=== PATIENT | female | born 2000 | race Caucasian/White ===

== ENCOUNTER 2024-09-06 10:31 | Emergency (ER) | payer OTHER, SELFPAY ==
--- NOTE | ~2024-09-06 | XR_ITS ---
CLINICAL HISTORY: chest pain 2 view chest x-ray Comparison: None Findings: No consolidation or effusion. Heart size is normal. No acute fracture. IMPRESSION: No acute cardiopulmonary process. This document has been electronically signed by: Melissa Hillman DO on 09/06/2024 11:38:19
--- NOTE | 2024-09-06 10:34 | ECG_ITS ---
Test Reason : cp Blood Pressure : */* mmHG Vent. Rate : 76 BPM Atrial Rate : 76 BPM P-R Int : 124 ms QRS Dur : 96 ms QT Int : 374 ms P-R-T Axes : 52 61 44 degrees QTcB Int : 420 ms Normal sinus rhythm with sinus arrhythmia Normal ECG No previous ECGs available Referred By: Generic ED Physician Electronically Signed By: JANAY JOHNSON
[2024-09-06 10:43] VITALS: BP 116/80; PULSE 75; RESP 14; O2SAT 100; BMI 39.7
--- NOTE | 2024-09-06 10:54 | ED_ITS ---
HPI - Arrhythmia/Palpitations General Chief Complaint: Arrhythmia/Palpitations Stated Complaint: chest pain rapid heart beat hands numbness Time Seen by Provider: 09/06/24 10:53 Source: patient Mode of arrival: ambulatory Limitations: no limitations History of Present Illness ED Provider: RERE AUSTIN PA-C HPI narrative: 24 year old female with pmhx significant for asthma presents to the ED today for evaluation of palpitations x6 days. Admits it feels like her heart is racing. Symptoms have been constant, worse when she lies down for bed at night. Reports associated discomfort towards the left side of her chest without radiation. Admits to history of similar 1 year ago. She reports following up with cardiology at [facility] with unremarkable holter monitor. Since this time has cut out all caffeine. Denies any recent life stressors or anxiety provoking situations. Endorses [address] to [place] a few weeks ago. Currently on OCP. no recent medication changes. No personal or familial cardiac hx. Denies hx of sudden cardiac deaths in the family. Denies headache, dizziness, vision changes, SOB, LE pain/swelling, N/V. Related Data Previous Rx's ?Medication ?Instructions ?Recorded hydroxyzine HCl 25 mg tablet 25 mg PO BEDTIME 2 weeks #14 tabs 09/06/24 Allergies Allergy/AdvReac Type Severity Reaction Status Date / Time No Known Allergies Allergy Verified 09/06/24 10:45 Review of Systems 2 Review of Systems: Yes all other systems are reviewed and are negative [facility] Past Medical History Attestation statement: The following information was validated with the patient. Source: old records reviewed and nursing notes reviewed Physical Exam 2 Vital Signs: Vital Signs: Last Vital Signs Temp 98.5 F 09/06/24 13:42 Pulse 69 09/06/24 13:42 Resp 17 09/06/24 13:42 BP 119/75 09/06/24 13:42 Pulse Ox 98 09/06/24 13:42 O2 Del Method Room Air 09/06/24 13:42 BMI result Body Mass Index 39.7 vital signs stable, not tachycardic General: Well appearing, in no acute distress. Skin: Warm, dry, intact. No rashes or lesions. Head: Normocephalic, atraumatic. EENT: Hearing is intact b/l. Conjunctiva clear. Sclera is anicteric. PERRLA. Cardiac: Chest wall symmetric. RRR. No reproducible TTP Lungs: Normal respiratory effort without accessory muscle use. CTA bilaterally Abdomen: Soft, non-tender, non-distended. No rebound tenderness or guarding. Positive BS x4. Ext: Upper and lower extremities atraumatic, without tenderness, deformity, swelling or erythema Neuro: AOx3. Normal speech. Course Course Course Narrative: 1154 -- CBC with no leukocytosis or left shift. H&H stable. No electrolyte abnormalities, kidney function WNL, your enzymes WNL. TSH WNL. Beta hCG undetectable. D-dimer negative, PE unlikely. Chest x-ray shows no consolidation or effusion, normal heart size, no acute fracture. EKG shows normal sinus rhythm with sinus arrhythmia, 76 beats per minute. > pending viral swabs 1310 -- viral swabs negative. Patient's vitals have remained stable. She has not been tachycardic during visit today. she is well appearing. Given symptoms have been consistent, worsening when she lies down for bed at night, I have suspicion for some sort of anxiety component. I will send Atarax to her pharmacy for her to trial. Patient is agreeable with this. She was given a dose in the ED today. Advised PCP and cardiology follow up as she may warrant a repeat Holter monitor. Patient has remained stable throughout ED visit today. Discussed worrisome signs and symptoms and when to return to the ED. All questions answered at this time. Patient is agreeable with disposition and stable for discharge. Medications Administered Discontinued Medications Generic Name Dose Route Start Last Admin Trade Name Freq PRN Reason Stop Dose Admin Hydroxyzine HCl 25 mg 09/06/24 13:10 09/06/24 13:41 Hydroxyzine Hcl 25 Mg Tablet PO 09/06/24 13:11 25 mg ONCE ONE Administration Medical Decision Making Medical Decision Making [facility] Narrative: 24 year old female with pmhx significant for asthma presents to the ED today for evaluation of palpitations x6 days. ? Exam without evidence of volume overload. EKG without signs of active ischemia. HEART score: 0.? Given the timing of pain to ED presentation, plan to send single troponin to evaluate for NSTEMI. Differential diagnosis also includes anemia, electrolyte abnormality, costochondritis, msk pain, pneumonia, pleurisy, PE (PERC 2), anxiety, thyroid abnormality Presentation not consistent with pneumothorax, thoracic aortic dissection, cardiac effusion or tamponade, myocarditis, pericarditis Plan: labs, troponin, EKG, CXR, pain control, reassessment Differential Diagnosis Differential Diagnoses: The differential diagnosis associated with the presentation includes As above Admission/Observation Not indicated Lab Data MDM Lab Attestation statement: I reviewed the patient's lab results. As above 09/06/24 10:50 09/06/24 10:50 Labs: Lab Results 09/06/24 09/06/24 Range/Units 10:50 11:24 WBC 6.3 (4.8-10.8) X10*3/uL RBC 4.90 (4.20-5.50) X10*6/uL Hgb 14.1 (12.0-16.0) g/dl Hct 42.1 (37.0-47.0) % MCV 85.9 (80.0-98.0) fL MCH 28.8 (27.0-33.0) pg MCHC 33.5 (31.0-35.0) g/dl RDW 12.7 (11.0-16.0) % Plt Count 361 (160-400) X10*3/uL MPV 9.6 (9.4-12.3) fL Immature Gran % (Auto) 0.2 (0.0-0.4) % Neut % (Auto) 57.7 (45-73) % Lymph % (Auto) 35.3 (20-40) % Bullock % (Auto) 5.9 (2-11) % Eos % (Auto) 0.3 (0-4) % Baso % (Auto) 0.6 (0-2) % Lymph # (Auto) 2.2 (1.2-4.9) X10*3/uL Bullock # (Auto) 0.4 (0.1-1.2) X10*3/uL Eos # (Auto) 0.0 (0.0-0.4) X10*3/uL Baso # (Auto) 0.0 (0.0-0.2) X10*3/uL Abs Immat Gran (auto) 0.01 (0.00-0.03) X10*3/uL Absolute Neuts (auto) 3.6 (2.0-8.3) x10*3/uL Absolute Nucleated RBC 0.000 (0.0-0.012) X10*3/uL Nucleated RBC % (auto) 0.0 (0.0-0.2) /100WBC D-Dimer High Sensitivty < 150 NG/ML Sodium 141 (135-145) mmol/L Potassium 4.1 (3.3-5.1) mmol/L Chloride 107 (96-108) mmol/L Carbon Dioxide 26 (22-29) mmol/L Anion Gap 12 (12-20) BUN 9 (9-16) mg/dL Creatinine 0.62 (0.5-1.4) mg/dL Estim Creat Clear Calc 154.7 Estimated GFR > 60 Random Glucose 93 (60-115) mg/dL Calcium 9.2 (8.4-10.2) mg/dL Total Bilirubin 0.5 (0.0-1.0) mg/dL AST 19 (5-31) U/L ALT 12 (0-31) U/L Alkaline Phosphatase 48 (39-117) U/L Troponin I High Sens < 2.7 (<3.5-17.0) ng/L Total Protein 7.2 (6.5-8.0) g/dL Albumin 4.0 (3.5-5.0) g/dL TSH 1.70 (0.32-4.0) uIU/mL Beta HCG, Quant < 2 mIU/mL Influenza Type A (PCR) NEGATIVE (Negative) Influenza Type B (PCR) NEGATIVE (Negative) RSV RNA Qual (PCR) NEGATIVE (Negative) SARS-CoV-2 RNA (RT-PCR) NEGATIVE (Negative) Independent Interpretation I performed an independent interpretation of an: EKG and Plain X-Ray Interpretation: EKG showing normal sinus rhythm, 76 bpm, no ischemic changes or ST abnormalities. Chest x-ray showing no consolidations or effusions, normal heart size, and no acute fracture Radiology Impression Discussion of test interpretation with radiology: I have reviewed the radiologist's reading. Radiologist Impression: Date of Service: 09/06/24 Procedure(s): ECG 12 lead EKG Accession Number(s): [id number] cc: ~ Test Reason : cp Blood Pressure : */* mmHG Vent. Rate : 76 BPM Atrial Rate : 76 BPM P-R Int : 124 ms QRS Dur : 96 ms QT Int : 374 ms P-R-T Axes : 52 61 44 degrees QTcB Int : 420 ms Normal sinus rhythm with sinus arrhythmia Normal ECG No previous ECGs available Date of Service: 09/06/24 Procedure(s): XR chest 2V Accession Number(s): [id number] cc: Rere Austin; Jane De La Torre CNP~ CLINICAL HISTORY: chest pain 2 view chest x-ray Comparison: None Findings: No consolidation or effusion. Heart size is normal. No acute fracture. IMPRESSION: No acute cardiopulmonary process. This document has been electronically signed by: Melissa Hillman DO on 09/06/2024 11:38:19 Prescription Management I considered prescription management with: Other (Hydroxyzine) Social Determinants Patient?s care significantly limited by Social Determinants of Health including: Other Social Determinant of Health Critical Care Time Critical Care Time Critical Care Time: No Discharge Plan Discharge Clinical Impression: Heart palpitations Patient Disposition: Home, Self-Care Instructions: Heart Palpitations (ED) Additional Instructions: You were evaluated in the ED today for heart palpitations. Your workup is reassuring. Your blood work including cardiac enzyme is normal. You are not having a heart attack. I suspect this may be anxiety related. you are agreeable to trying atarax. Take 25 mg daily for 2 weeks. Please follow up with your primary care provider regarding subsequent refills. I also recommend following up with Cardiology as you may require Holter monitor. I have provided you with a referral. Call them to establish care. They will not call you. Please return with any new or worsening symptoms. In the case of an emergency call 911. Prescriptions: New hydroxyzine HCl 25 mg tablet 25 mg PO BEDTIME 14 Days Qty: 14 0RF Referrals: [facility] [Provider Group] Jane De La Torre CNP [Primary Care Provider] - Interventions: ED Discharge Assessment Last Done: 09/06/24 13:42 Discharge Date/Time: 09/06/24 13:47 Print Language: Mauritian
--- OUTSIDE RECORDS SUMMARY | 2024-09-06 10:55 | XMS_ITS | Clinical Summary ---
Author Organization [address] [facility] Address [address] [place] [address] Phone Care Team Providers Care Rn Assessment Name Role Phone Eric De Leon MD Primary Care Provider [phone] Allergies No known active allergies Medications silver sulfADIAZINE (Silvadene) 1 % cream Apply topically 1 (one) time each day. 50 g 06/04/19 26 Active Encounters Date Type Department Care Team Description 07/10/2024 8:30 AM EDT Office Visit [facility] [place] [address] [phone] Inder Stark DPM Ingrowing nail (Primary Dx) 06/18/2024 8:15 AM EST Office Visit [facility] [address] [phone] Inder Stark DPM Cellulitis of right foot (Primary Dx); Granulation tissue; Ingrowing nail 06/12/2024 8:30 AM EST Office Visit Orth[facility] [place] [address] [phone] Inder Stark DPM Cellulitis of right foot (Primary Dx); Granulation tissue from Last 3 Months Social History Tobacco Use Types Packs/Day Years Used Date Smoking Tobacco: Never Assessed Comments Unknown Sex and Gender Information Value Date Recorded Sex Assigned at Not on file Legal Sex Female 7:10 PM EST Gender Identity Not on file Sexual Orientation Not on file Last Filed Vital Signs Vital Sign Reading Time Taken Comments Blood Pressure - - Pulse - - Temperature - - Respiratory Rate - - Oxygen Saturation - - Inhaled Oxygen Concentration - - Weight 81.6 kg (180 lb) 07/10/2024 8:25 AM EDT Height 157.5 cm (5' 2.01 ) 07/10/2024 8:25 AM ED T Body Mass Index 32.91 07/10/2024 8:25 AM EDT Plan of Treatment Health Maintenance Due Date Last Done Comments Gonorrhea/Chlamydia Screening 2001 Meningococcal B Vaccine (1 of 2 - Standard) 2017 Depression Screening 04/01/2022 HIV Screening 04/01/2022 Hepatitis C Screening 04/01/2022 Social Influencers of Health Screening 04/01/2022 Cervical Cancer Screening: Pap Smear 2022 DTaP,Tdap,and Td Vaccines (7 - Td or Tdap) 10/11/2022 10/11/2012, 07/24/2006, 11/27/2002, Additional history exists COVID-19 Vaccine ( season) 2023 09/05/2020, 08/15/2020 Influenza Vaccine (Season Ended) 2024 12/28/2015 Hepatitis B Vaccines Completed 01/30/2002, 2001, 2001 HIB Vaccines Completed 08/04/2002, 10/29, 2001, Additional history exists MMR Vaccines Completed 08/04/2002, 05/07/2002 Pneumococcal Vaccine: Pediatrics (0 to 5 Years) and At-Risk Patients (6 to 64 Years) Completed 11/27/2002, 2001, 2001 IPV Vaccines Completed 07/24/2006, 10/30, 2001, Additional history exists Varicella Vaccines Completed 08/21/2006, 05/07/2002 HPV Vaccines Completed 12/28/2015, 11/28, 10/11/2012 Meningococcal ACWY Vaccine Completed 11/07/2017, Hepatitis A Vaccines Completed 05/20/2018, 11/08/19 18 RSV Immunization Patients Under 20 months Aged Out No longer eligible based on patient's age to complete this [place] [id number] Care Teams Rn Assessment Relationship Specialty Start Date End Date Eric De Leon MD [address] [place] [address] PCP - General Internal Medicine 06/03/24
--- OUTSIDE RECORDS SUMMARY | 2024-09-06 10:55 | XMS_ITS ---
Author Organization [facility] Address [address] [place] [address] Care Team Providers Care Track Leader Name Role Phone KRYS SINGER, JAKE Primary Care Provider Unav ailable MECCA [address]OX [phone] Encounters Encounter Location Date Provider Diagnosis [facility] [address] [place] [address] 07/21/2024 MECCA [address] Plan Of Treatment Next Appt Details Provider Name:MECCA Diaz, 06/09/2025 08:20:00 AM, [address], [address], [place], [address], Progress Notes * JULIA KANDYEDOB:06/2000 (24 yo F)Acc No.[id number]:07/21/2024 Patient:?DUMONTJEANSABARyan EE :2000???Age:24 Y???Sex:Female Address:[address] [place] [address], [id number] Subjective: * Chief Complaints: * ??? * Medical History:? * Surgical History:? * Hospitalization/Major Diagno stic Procedure:? * Medications:? Objective: * Vitals:? * Physical Examination:? Assessment: Plan: * Treatment: * Procedure Codes:? * true * Date:? Generated for Printi ng/Faxing/eTransmitting on:?09/06/2024 10:55 AM EDT
--- OUTSIDE RECORDS SUMMARY | 2024-09-06 10:55 | XMS_ITS ---
Author Organization [facility] Address [address] [place] [address] Care Team Providers Care Inside Sales Director Name Role Phone KRYS SINGER, LUNA Primary Care Provider Unav ailable MECCA BOX Unavailable [phone] Allergies No Known Allergies Results Component Value Reference Range Notes Urinalysis Reviewed date:07/17/2024 01:16:04 PM Interpretation: Performing Lab: Notes/Report: NITRITE neg PH 6.0 PROTEIN trace S.G 1.010 WBC LG GLUCOSE neg KETONES neg UROBILINOGEN neg BILIRUBIN neg BLOOD Small Urine Culture, Routine-[id number] Reviewed date:07/21/2024 08:44:38 AM Interpretation: Performing Lab:[facility], [address], [address], [place], Phone - [phone], Director - [facility] Notes/Report: Clinical Information:SRC: YAN GRANGER SRC: URINE Clinical Information:SRC: YAN GRANGER SRC: URINE Urine Culture, Routine Final report Result 1 Escherichia coli Susceptibility profile is consistent with a probable ESBL. Multi-Drug Resistant Organism Greater than 100,000 colony forming units per mL Antimicrobial Susceptibility S = Susceptible; I = Intermediate; R = Resistant P = Positive; N = Negative MICS are expressed in micrograms per mL Antibiotic RSLT#1 RSLT#2 RSLT#3 RSLT#4 Amoxicillin/Clavulanic Acid I Ampicillin R Cefazolin R Cefepime S Cefoxitin S Cefpodoxime R Ceftriaxone R Ciprofloxacin R Ertapenem S Gentamicin S Levofloxacin R Meropenem S Nitrofurantoin S Piperacillin/Tazobactam R Tetracycline R Tobramycin S Trimethoprim/Sulfa S No Serum Gel Received TNP Test not performed. No serum gel received. TEST: [id number] HSV 1 and 2 Ab, IgG NTI Viral Transport Dear Doctor, . The requisition we received for the above patient has no test indicated on the request form for one or more of the specimens submitted. The [place] Code of Federal Regulations requires a written and signed request be forwarded to the testing laboratory following the verbal order of a laboratory test. Please complete the following and fax to to expedite testing. . Required test name(s) Required test number(s) Physician signature Date __ Diagnosis Code: . In order to maintain sample integrity, samples will be stored for two to seven days from the date of receipt. A viral transport was received with no test indicated. If testing is required on this specimen, please contact the [facility] Client Inquiry/Technical Services Department to obtain a Request for Written Authorization Form. HSV [id number] Reviewed date:07/28/2024 11:58:09 AM Interpretation: Performing Lab:[facility] Dao, [address], [place], Phone - [phone], Director - Hammad Notes/Report: Clinical Information:SRC: YAN GRANGER SRC: URINE was developed and its performance characteristics determined by [facility]. It has not been cleared or approved by the Food and Drug Administration. HSV 1 LUZ Negative Negative HSV 2 LUZ Negative Negative PDF Report Reviewed date:07/21/2024 04:52:48 PM Interpretation: Performing Lab:[facility] [address], [address], [place], Phone - [phone], Director - Liza Notes/Report: Clinical Information:SRC: YAN GRANGER SRC: URINE Verbal Order Reviewed date:07/22/2024 08:32:45 AM Interpretation: Performing Lab:[facility] [place], [address], [place], Phone - [phone], Director - Hammad Notes/Report: Clinical Information:SRC: YAN GRANGER SRC: URINE See below: Comment: Please provide requested information and fax to . . The [place] Code of Federal Regulations requires a written and signed request be forwarded to a laboratory following a verbal order of a laboratory test. Please assist us to meet this requirement and to complete our records. . Date: Diagnosis code(s) provided for this order: N76.6 R30.0 . Additional Diagnosis Code(s): Please Print . ICD-9/10 Diagnosis Code(s): _ . Physician or Authorized Designee: Please Print . Physician or Authorized Designee Signature: . Your Signature Confirms Your Order Of The Test(s) Listed . Additional Test(s) Requested Comment: Test(s) added per ashly delarosa john at account 07-21-2024 Logged by Rich Nye Test# [id number] HSV LUZ Written Authorization Reviewed date:07/24/2024 01:48:27 PM Interpretation: Performing Lab:[facility] [place], [address], [place], Phone - [phone], Director - Hammad Notes/Report: Clinical Information:SRC: YAN GRANGER SRC: URINE was developed and its performance characteristics determined by [facility]. It has not been cleared or approved by the Food and Drug Administration. Written Authorization Written Authorization Received. Authorization received from MECCA BOX MD 07-24-2024 Logged by Luna Young REASON FOR VISIT BURNING WITH URINATION Medications Medication SIG (Take, Route, Frequency, Duration) Notes Start Date End Date Status Albuterol Sulfate HFA 108 (90 Base) MCG/ACT INHALE 1 PUFF (90 MCG) BY INHALATION ROUTE EVERY 6 HOURS NEEDED Inhalation for 25 Active Montelukast Sodium 10 MG Oral for 90 Days Active Vienva 0.1-20 MG-MCG 1 tablet Orally Onc e a day for 84 days Active Social History Tobacco Use: Social History Observation Description Date Details (start date - stop date) Never Smoker NA - NA Tobacco Use/Smoking Question Answer Notes Are you a nonsmoker AUDIT-C (Standard) Question Answer Notes Did you have a drink contain ing alcohol in the past year? Yes How often did you have a dri nk containing alcohol in the past year? 2 to 3 times a week (3 points) How many drinks did you have on a typical day when you were drinking in the past year? 3 or 4 drinks (1 point) How often did you have six o r more drinks on one occasion in the past year? Less than monthly (1 point) Points 5 Interpretation Positive Vital Signs Temperature 97.3 degrees Fahrenheit 07/18/19 25 Blood pressure systolic 122 mm Hg 07/18/19 25 Blood pressure diastolic 68 mm Hg 025 Height 63 in 07/17/2024 Weight 215 lbs 07/17/2024 BMI 38.08 kg/m2 07/17/2024 Encounters Encounter Location Date Provider Diagnosis [address] [place] [address] 07/17/2024 MECCA BOX Dysuria R30.0 and Ulceration of vulva N76.6 Assessments Encounter Date Diagnosis (ICD Code) Assessment Notes Treatment Notes Treatment Clinical Notes Section Notes 07/17/2024 Dysuria (ICD-10 - R30.0) plenty of fluids orally , AZO as needed , Tylenol 3-4 times a day as needed , Call if not better 07/17/2024 Ulceration of vulva (ICD-10 - N76.6) Likely a laceration from intercourse. Advised to use a squirt bottle or to void in the tub. This will heal by secondary intention. Will rule out HSV, but doubt this is the diagnosis. Plan Of Treatment Treatment Notes Assessment Notes Dysuria plenty of fluids ora lly , AZO as needed , Tylenol 3-4 times a day as needed , Call if not better Ulceration of vulva Likely a laceration from intercourse. Advised to use a squirt bottle or to void in the tub. This will heal by secondary intention. Will rule out HSV, but doubt this is the diagnosis. Pending Test Test Name Order Date HSV 1 and 2 Ab, [id number] 07/17/2024 Next Appt Details Follow Up: prn, Reason: Provider Name:MECCA Diaz, 06/09/2025 08:20:00 AM, [address], [address], [place], [address], Progress Notes * JULIAKANDYBERKLEYOB:06/2000 (24 yo F)Acc No.[id number]:07/17/2024 PROGRESS NOTES Patient:?VALERIANO DUMONT DERIK Provider:?MECCA BOX MD :2000???Age:24 Y???Sex:Female D ate:07/17/2024 Address:[address] [place], [place] [id number] Pcp:LUNA MARCANO NP Subjective: * Chief Complaints: * ???BURNING WITH URINATION * HPI: ???STENOCAPTIONER (Problems):?24 year old female presents with c/o Urinary Tract Infection (symptoms of):?Describes problems as:?dysuria, frequency, urgency - she reports the dysuria as being on the right side ?Date of onset:?less than one week (5 days ago) ?Onset and progression of problem:?acute onset, has not changed since onset ?Timing of onset of problem:?she reports she had aggressive intercourse prior to the onset of symptoms ?Associated signs and symptoms:?None ? She is currently on her menses, and wearing a tampon. * ROS:?General/Constitutional:?Denies?Chills.?Denies?Fever.?Women Only:?Patient denies?new sexual partners.?Denies?Painful intercourse.?Denies?Vaginal discharge/itching.?Genitourinary:?Denies?Abdominal pain/swelling.?Denies?Blood in urine.?Admits?Difficulty urinating.?Admits?Frequent urination.?Denies?Pain in lower back.?Admits?Painful urination.? * Medical History:? * Enterprise Application Architect History:?/ Para?0/0.?Sexual activity?currently sexually active, with men.?Last Pap Smear:?02/22/23 NIL.?LMP and menses?07/17/2024 05/24/24,.?History of STD's:?none.? Control:?oral contraceptive pill.?Menarche?15.?Gardasil:?has not had vaccine.?STENOCAPTIONER HISTORY MISC.?Coitarche age 21, 3 lifetime partners.? * OB History:?Total pregnancies?0.? * Surgical History:?repair of fractured nose 2011removal of right great toe ingrown toenail 05/2024 * Hospitalization/Major Diagno stic Procedure:?No Hospitalization History. * Family History:?Mother: davis mahan 55 yrs, well.?Father: alive 53 yrs, high cholesterol.?Paternal Grand Mother: alive, diabetes.?Paternal Grand Father: .?Maternal Grand Mother: , [place] in her early 60's.?Maternal Grand Father: 84 yrs, colon cancer: Covid, aspiration.? Brother - Jitendra - 1998 - well Denies family history of breast, uterine or ovarian cancers. * Social History:?Tobacco Use:?Tobacco Use/Smoking?Are you a?nonsmoker ???Drugs/Alcohol:?Drugs?Have you used drugs other than those for medical reasons in the past 12 months??No ???Miscellaneous:?Domestic violence: no. ?Exercise: yes, Gym, Walk. ?Home smoke detector use: yes, smoke detectors, carbon monoxide detector. ?Housing: living with relatives. ?Living with: parents, uncle. ?Marital status: single. ?Occupation: [employer]. ?Pets: dogs: 1 mini Aussie. ?Sexual abuse: no. ?Sexually active: yes. ?Verbal abuse: no. ???Drug/Alcohol:?AUDIT-C (Standard)?Did you have a drink containing alcohol in the past year??Yes ?How often did you have a drink containing alcohol in the past year??2 to 3 times a week (3 points) ?How many drinks did you have on a typical day when you were drinking in the past year??3 or 4 drinks (1 point) ?How often did you have six or more drinks on one occasion in the past year??Less than monthly (1 point) ?Points?5 ?Interpretation?Positive * Medications:?TakingAlbuterol Sulfate HFA 108 (90 Base) MCG/ACT Aerosol Solution INHALE 1 PUFF (90 MCG) BY INHALATION ROUTE EVERY 6 HOURS NEEDED Inhalation Montelukast Sodium 10 MG Tablet Oral Vienva 0.1-20 MG-MCG Tablet 1 tablet Orally Once a day Medication List reviewed and reconciled with the patientTaking Albuterol Sulfate HFA 108 (90 Base) MCG/ACT Aerosol Solution INHALE 1 PUFF (90 MCG) BY INHALATION ROUTE EVERY 6 HOURS NEEDED Inhalation Taking Montelukast Sodium 10 MG Tablet Oral Taking Vienva 0.1-20 MG-MCG Tablet 1 tablet Orally Once a day Medication List reviewed and reconciled with the patient * Allergies:?N.K.D.A.no[Allerg ies Verified] Objective: * Vitals:?Ht: 63 in, Wt:215lbs , BMI:38.08Index, BP:122/68mm Hg, Temp:97.3F. * Examination: ???General Examination: ?GENERAL APPEARANCE:? pleasant, well nourished, in no acute distress, deflash and wash operator present in room.?LYMPH NODES:?no inguinal adenopathy.?ABDOMEN:?soft, nontender, nondistended, bowel sounds present, no masses palpable, no hepatosplenomegaly.?BACK:?normal, no costovertebral angle tenderness.?Genitourinary - Female: ?EXTERNAL GENITALS:? right vulvar ulcer, but looks more like a healing laceration than an ulcer.?URETHRAL MEATUS:? normal.?VAGINA:?with tampon.? Assessment: * Assessment: 1.?Dysuria - R30.0 (Primary) ???2.?Ulceration of vulva - N76.6??? Plan: * Treatment: ? Value Reference Range ?Urine Culture, Routine Final report A - * ?Result 1 Escherichia coli A - * ?No Serum Gel Received TNP - * urineThis lab was reviewed Lakia BOX on 07/21/2024 at 08:44 AM EDT ?LAB: Urinalysis (Collection Date & Time - 07/17/2024)* ? Value Reference Range ?NITRITE neg * ?PH 6.0 * ?PROTEIN trace * ?S.G 1.010 * ?WBC LG * ?GLUCOSE neg * ?KETONES neg * ?UROBILINOGEN neg * ?BILIRUBIN neg * ?BLOOD Small Notes: plenty of fluids orally , AZO as needed , Tylenol 3-4 times a day as needed , Call if not better??2.?Ulceration of vulva?LAB: HSV 1 and 2 Ab, [id number] (Collection Date & Time - 07/17/2024 10:26 AM)* HSV 1& 2 PCR RT labia Minora Notes: Likely a laceration from intercourse. Advised to use a squirt bottle or to void in the tub. This will heal by secondary intention. Will rule out HSV, but doubt this is the diagnosis.? * Procedure Codes:? * Follow Up:?prn * Images: Billing Information: * Visit Code:? 31825 Office Visit, Est Pt., Level 3. * Procedure Codes:? * Sign off status: Completed true * Provider:?MECCA BOX MD Date:?2024 Generated for Rommel bennett/Ac/eTransmitting on:?09/06/2024 10:55 AM EDT History and Physical Notes * HPI (History of Present Illness) Category Sub-Category Detail Notes Category Not es STENOCAPTIONER (Problems) Urinary Tract Infection (symptoms of): Describes problems as:: dysuria, frequency, urgency - she reports the dysuria as being on the right side She is currently on her menses, and wearing a tampon Date of onset:: less than one week (5 da ys ago) Onset and progression of pro blem:: acute onset, has not changed since onset Timing of onset of problem:: she reports she had aggressive intercourse prior to the onset of symptoms Associated signs and symptoms:: None Examination Category Sub-Category Detail Notes Category Not es Genitourinary - Female EXTERNAL GENITALS: right vulvar ulcer, but looks more like a healing laceration than an ulcer VAGINA: with tampon URETHRAL MEATUS: normal General Examination GENERAL APPEARANCE: pleasant , well nourished, in no acute distress, deflash and wash operator present in room ABDOMEN: soft, nontender, non distended, bowel sounds present, no masses palpable, no hepatosplenomegaly BACK: normal, no costovert ebral angle tenderness LYMPH NODES: no inguinal adenopat hy
--- OUTSIDE RECORDS SUMMARY | 2024-09-06 10:55 | XMS_ITS ---
Author Organization [facility] Address [address] [address] Care Team Providers Care Yard Demurrage Clerk Name Role Phone KRYS SINGER, JAKE Primary Care Provider Unav MECCA Phillips Unavailable [phone] REASON FOR VISIT UTI Medications Medication SIG (Take, Route, Fr equency, Duration) Notes Start Date End Date Status Bactrim DS 800-160 MG 1 tablet Orally Tw ice a day for 3 days 07/21/2024 Active Encounters Encounter Location Date Provider Diagnosis [facility] [address] [address] 07/21/2024 MECCA BOX Urinary tract infection, site not specified N39.0 Assessments Encounter Date Diagnosis (ICD Code) Assessment Notes Treatment Notes Treatment Clinical Notes Section Notes 07/21/2024 Urinary tract infection, site not specified (ICD-10 - N39.0) Plan Of Treatment Medication Medication Name Sig Start Date Stop Date Notes Bactrim DS 800-160 MG 1 tablet Orally Tw ice a day for 3 days 07/21/2024 Next Appt Details Provider Name:MECCA Diaz, 06/09/2025 08:20:00 AM, [address] [facility], [address], [place], [address], Progress Notes * KANDY DUMONTEDOB:06/2000 (24 yo F)Acc No.[id number]:07/21/2024 Patient:?VALERIANO DUMONT DERIK :2000???Age:24 Y???Sex:Female Address:[address] [place] [address], [place], [address] * Refills? Start Bactrim DS Tablet, 800-160 MG, Orally, 6 Tablet, 1 tablet, Twice a day, 3 days, Refills=0 Subjective: * Chief Complaints: * ???UTI * Medical History:? * Surgical History:? * Hospitalization/Major Diagno stic Procedure:? * Medications:? Objective: * Vitals:? * Physical Examination:? Assessment: * Assessment: 1.?Urinary tract infection, site not specified - N39.0 (Primary)??? Plan: * Treatment: * Procedure Codes:? * true * Date:? Generated for Rommel bennett/Ac/eTransmitting on:?09/06/2024 10:55 AM EDT
[2024-09-06 10:56] LABS: MANUAL DIFF FLAG NO
[2024-09-06 11:00] LABS: Basophils Percent Auto 0.6 % (0-2); Eosinophils Percent Auto 0.3 % (0-4); Hematocrit 42.1 % (37.0-47.0); Hemoglobin 14.1 g/dl (12.0-16.0); Imm Gran Abs Auto 0.01 X10*3/uL (0.00-0.03); Imm Gran Pct Auto 0.2 % (0.0-0.4); Lymphocytes Absolute Auto 2.2 X10*3/uL (1.2-4.9); Lymphocytes Percent Auto 35.3 % (20-40); Mean Corpuscular HGB Conc 33.5 g/dl (31.0-35.0); Mean Corpuscular Hemoglobin 28.8 pg (27.0-33.0); Mean Corpuscular Volume 85.9 fL (80.0-98.0); Mean Platelet Volume 9.6 fL (9.4-12.3); Monocytes Absolute Auto 0.4 X10*3/uL (0.1-1.2); Monocytes Percent Auto 5.9 % (2-11); Neutrophils Absolute Auto 3.6 x10*3/uL (2.0-8.3); Neutrophils Percent Auto 57.7 % (45-73); Platelet Count 361 X10*3/uL (160-400); Red Cell Distribution Width 12.7 % (11.0-16.0); White Blood Count 6.3 X10*3/uL (4.8-10.8)
[2024-09-06 11:29] LABS: Alanine Aminotransferase 12 U/L (0-31); Alkaline Phosphatase 48 U/L (39-117); Anion Gap 12 (12-20); Aspartate Amino Transferase 19 U/L (5-31); Bilirubin Total 0.5 mg/dL (0.0-1.0); Blood Urea Nitrogen 9 mg/dL (9-16); Calcium 9.2 mg/dL (8.4-10.2); Carbon Dioxide 26 mmol/L (22-29); Chloride 107 mmol/L (96-108); Creatinine Clr Calc Pharmacy 154.7; Estimated Glomerular Filt Rate > 60; Glucose Random 93 mg/dL (60-115); Potassium 4.1 mmol/L (3.3-5.1); Sodium 141 mmol/L (135-145); Total Protein 7.2 g/dL (6.5-8.0)
[2024-09-06 11:31] LABS: Troponin-I High Sensitivity < 2.7 ng/L (<3.5-17.0)
[2024-09-06 11:44] LABS: D Dimer High Sensitivity < 150 NG/ML
[2024-09-06 11:46] LABS: HCG Quantitative < 2 mIU/mL
[2024-09-06 12:12] LABS: Influenza A PCR NEGATIVE (Negative); Influenza B PCR NEGATIVE (Negative); Resp Syncy Virus RNA Qual PCR NEGATIVE (Negative); SARS COV2 PCR INHOUSE NEGATIVE (Negative)
[2024-09-06] MEDS: hydrOXYzine HCL 25 MG TABLET PO (13:41)
[2024-09-06 13:42] VITALS: BP 119/75; PULSE 69; RESP 17; TEMP 36.9; O2SAT 98
== END 2024-09-06 13:47 | disposition home or self-care (01) ==
PROVIDERS: Physician Assistant Medical; Emergency Provider Emergency Medicine; PCP Nurse Practitioner Primary Care
DX: I49.9 Cardiac arrhythmia, unspecified (principal); R00.2 Palpitations; R10.2 Pelvic and perineal pain; Z03.818 Encounter for observation for suspected exposure to other biological agents ruled out; Z79.899 Other long term (current) drug therapy
CPT/HCPCS: 0241U; 36415; 71046; 80053; 84443; 84484; 84702; 85025; 85379; 93005; 99283; 99284

== ENCOUNTER → 2024-09-06 10:34 | Outpatient (BNV) | payer OTHER, SELFPAY | PROVIDERS: Emergency Provider Emergency Medicine; PCP Nurse Practitioner Primary Care; Visit Provider Internal Medicine | DX: R07.9 Chest pain, unspecified (principal) | CPT/HCPCS: 93010 ==

== ENCOUNTER → 2024-09-06 10:57 | Outpatient (BNV) | payer OTHER, SELFPAY | PROVIDERS: Emergency Provider Emergency Medicine; PCP Nurse Practitioner Primary Care; Visit Provider Radiology Diagnostic Radiology | DX: R07.9 Chest pain, unspecified (principal) | CPT/HCPCS: 71046 ==